=== PATIENT | male | born 1985 | race Caucasian/White ===

== ENCOUNTER 2017-09-16 10:39 | Emergency (ER) | payer OTHER | END 2017-09-16 12:52 | disposition home or self-care (01) | LOC: FTE 10:39 | DX: S09.90XA Unspecified injury of head, initial encounter (principal); R55 Syncope and collapse; W22.09XA Striking against other stationary object, initial encounter; Y92.9 Unspecified place or not applicable | CPT/HCPCS: 70450; 99284-25 ==